=== PATIENT | female | born 1995 | race African-American/Black ===

== ENCOUNTER 2017-01-25 16:25 | Emergency (ER) | payer BC ==
[~2017-01-25] VITALS: Ht 160 cm; Wt 60.0 kg
[~2017-01-25 16:25] MED LIST: IBUP-232 PO
[2017-01-25 16:27] VITALS: BP 168/111; PULSE 119; RESP 17; TEMP 98.7; O2SAT 95
[2017-01-25 19:03] VITALS: BP 117/80; PULSE 104; RESP 16; TEMP 98.2; O2SAT 100
[2017-01-25 20:00] VITALS: BP 137/88; PULSE 104; RESP 20; O2SAT 100
[2017-01-25 20:41] LABS: BACTERIA, URINE MOD /hpf; BLOOD, URINE NEG (NEG); COMMENT (UR) CULTURE INDICATED; CULTURE IF INDICATED CULTURE INDICATED; GLUCOSE,URINE NEG (NEG); KETONE, URINE 40 mg/dL (NEG); MUCUS URINE FEW /lpf (OCC); NITRITE,URINE NEG (NEG); PH, URINE 6.5 (5.0-8.5); SQUAMOUS EPITHELIAL CELL URINE 2 /hpf (0-5); URINE COLOR YELLOW (YELLW/STRAW)
[2017-01-25] MEDS ORDERED: CEPH-460 PO (20:47)
--- NOTE | 2017-01-25 20:54 | PD ---
HPI Chief Complaint: Abdominal Pain Time Seen by Provider: 20:48 Travel History International Travel<30 days: No Contact w/Intl Traveler<30days: No Traveled to known affect area: No History of Present Illness HPI 21-year-old female that presents to the ED for evaluation of lower abdominal pain. Patient has had this for almost 2-3 days. Per patient she does have some foul-smelling discharge as well as urinary issues. Per patient she has had intercourse recently. She denies any possibility of . She denies any chest pain or shortness of breath. States that the pain is 3-4 out of 10. Gets worse with urinary symptoms. Denies any fevers chills or sweats. Condition she also reports she's been having some congestion for the past 2-3 days. She states that she has friends that are sick. Smile cough. No ear pain or sore throat. She's been taking OTC meds with minimal relief. PFSH Past Medical History Medical History: Denies Significant Hx ?: Not Social History Alcohol Use: No Tobacco Use: No Substance Use: No Allergies-Medications (Allergen,Severity, Reaction): Coded Allergies: No Known Allergies (Unverified , 12/01/15) Reported Meds & Prescriptions Reported Meds & Active Scripts Active Keflex (Cephalexin) 500 Mg Cap 500 Mg PO BID 10 Days Motrin (Ibuprofen) 600 Mg Tab 600 Mg PO Q8HR PRN Review of Systems Except as stated in HPI: all other systems reviewed are Neg Physical Exam Narrative GENERAL: Well-nourished, well-developed patient in no apparent distress. SKIN: Warm and dry. HEAD: Atraumatic. Normocephalic. EYES: Pupils equal and round reactive to light and accommodation. No scleral icterus. No injection or drainage. ENT: No nasal bleeding or discharge. Mucous membranes pink and moist. TMs are clear with no sign of infection or perforation. No mastoid tenderness. Ear canals are intact bilaterally. No lymphadenopathy. Nostril mucosa is red and moist with clear mucus noted. No sinus tenderness to palpation noted. Tonsils are not enlarged or swollen. No ulvua Deviation. Tongue is midline. NECK: Trachea midline. No JVD. No meningeal signs noted CARDIOVASCULAR: Regular rate and rhythm. RESPIRATORY: No accessory muscle use. Clear to auscultation. Breath sounds equal bilaterally. GASTROINTESTINAL: Abdomen soft, non-tender, nondistended. Hepatic and splenic margins not palpable. Genital exam: Done with female nurse present. Patient does have some foul-smelling other coming from the vagina. Discharge noted but minimal. No obvious mass or deformity noted in the vaginal wall. No lymphadenopathy noted. No adnexal tenderness. No cervical tenderness. MUSCULOSKELETAL: Extremities without clubbing, cyanosis, or edema. No obvious deformities. Full range of motion of the upper and lower extremities bilaterally. 2+ pulses bilaterally. NEUROLOGICAL: Awake and alert. No obvious cranial nerve deficits. Motor grossly within normal limits. Five out of 5 muscle strength in the arms and legs. Normal speech. PSYCHIATRIC: Appropriate mood and affect; insight and judgment normal. Data Data Last Documented VS Vital Signs Date Time Temp Pulse Resp B/P Pulse Ox O2 Delivery O2 Flow Rate FiO2 01/25/17 20:00 104 20 137/88 100 01/25/17 19:03 98.2 Orders Gc And Chlamydia Pcr (01/25/17 19:25) Wet Prep Profile (01/25/17 19:25) Urinalysis - C+S If Indicated (01/25/17 19:25) Ed Urine Pregnancytest Poc (01/25/17 19:25) Urine Culture (01/25/17 20:00) Labs Laboratory Tests Test 01/25/17 20:00 Urine Color YELLOW Urine Turbidity HAZY Urine pH 6.5 Urine Specific [place] 1.023 Urine Protein TRACE mg/dL Urine Glucose (UA) NEG mg/dL Urine Ketones 40 mg/dL Urine Occult Blood NEG Urine Nitrite NEG Urine Bilirubin NEG Urine Urobilinogen LESS THAN 2.0 MG/DL Urine Leukocyte Esterase NEG Urine RBC LESS THAN 1 /hpf Urine WBC 1 /hpf Urine Squamous Epithelial 2 /hpf Cells Urine Bacteria MOD /hpf Urine Mucus FEW /lpf Microscopic Urinalysis Comment CULTURE INDICATED Clue Cells (Wet Prep) NONE SEEN Vaginal Trichomonas (Wet Prep) NONE SEEN Vaginal Yeast (Wet Prep) NONE SEEN MDM Medical Decision Making Medical Screen Exam Complete: Yes Emergency Medical Condition: Yes Medical Record Reviewed: Yes Interpretation(s) wet prep negative UA shows UTI Differential Diagnosis Sinusitis versus cervicitis versus vaginal discharge versus pelvic pain versus versus STD Narrative Course 21-year-old female that presents to the ED for evaluation of possible sinus infection and vaginal discharge. Patient was properly examined and was found to have signs and symptoms consistent what appears to be sinusitis with possible UTI versus vaginitis. Labs show possible UTI and wet prep Was negative. At this time I recommend treatment for possible STD as described also be gonorrhea and chlamydia. Patient does have some bacteria in the urine and this could be contamination from the vagina but we'll treat this UTI for now. Patient was given dose of ceftriaxone and azithromycin here in the ED. Patient will be sent home with prescription for Keflex which should cover for both bacterial infection of the sinuses as well as for UTI. Patient agrees with plan. Motrin or Tylenol for pain. Follow with PCP. Patient was told that if her test were positive for gonorrhea and chlamydia she will be notified. See ED for worsening symptoms. Diagnosis Primary Impression: Vaginitis Qualified Code: N76.0 - Acute vaginitis Additional Impressions: UTI (urinary tract infection) Qualified Code: N30.00 - Acute cystitis without hematuria Sinusitis Qualified Code: J01.00 - Acute non-recurrent maxillary sinusitis Patient Instructions: General Instructions Additional Instructions: Motrin and Tylenol for pain and fever. You can use [id number] antihistamine as well as well as Mucinex as needed for runny nose and congestion. Cough drops for cough as needed. Drink plenty of fluids. Follow-up with PCP. See ED for worsening symptoms. No sex for least 2 weeks. Always use protection when having sex. Med/Other Pt SpecificInfo: Prescription(s) given Scripts Cephalexin (Keflex)500 Mg [id number] Mg PO BID 10 Days Prov:Barbara Pradhan MD 01/25/17 Disposition: 01 DISCHARGE HOME Condition: Stable Pepe Patel Jan 25, 2017 20:54
[2017-01-25] MEDS ORDERED: cefTRIAXone 250 MG VIAL IM ONE (21:00)
[2017-01-25] MEDS ORDERED: AZITHROMYCIN PWD FOR SUSP 1 GM PACKET PO ONE (21:00)
[2017-01-25] MEDS ORDERED: LIDOCAINE HCL 1% 50 ML VIAL IM ONE (21:00)
[2017-01-25 21:06] VITALS: BP 147/71; PULSE 101; RESP 16; O2SAT 100
[2017-01-25 22:59] LABS: CHLAMYDIA PCR NOT DETECTED (NOT DETECT); NEISSERIA PCR NOT DETECTED (NOT DETECT)
== END 2017-01-25 21:39 | disposition home or self-care (01) ==
LOC: NEPE 16:25
DX: N76.0 Acute vaginitis (principal); N39.0 Urinary tract infection, site not specified; J32.9 Chronic sinusitis, unspecified
CPT/HCPCS: 81001; 84703; 87086; 87210; 87491; 87591; 96372; 99283; J0696

== ENCOUNTER 2017-02-23 18:08 | Emergency (ER) | payer BC ==
[~2017-02-23] VITALS: Ht 160 cm; Wt 56.0 kg
[~2017-02-23 18:08] MED LIST changes: +CEPH-460 PO
[2017-02-23 18:10] VITALS: BP 145/89; PULSE 81; RESP 17; TEMP 97.9; O2SAT 99
[2017-02-23] MEDS ORDERED: SODIUM CHLOR 0.9% 1000 ML INJ 1,000 ML IV ONE ×2 (18:37→20:00)
[2017-02-23] MEDS ORDERED: SODIUM CHLORIDE 0.9% FLUSH 10 ML FLUSH IVF PRN (18:45)
--- NOTE | 2017-02-23 18:55 | PD ---
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 She states that she just started getting lightheaded and passed out. She denies any injuries. She states that she still feels a little lightheaded. She denies any vomiting, fevers, or any other symptoms. She states that she did eat a light breakfast this morning. She states she is in her menses but denies significant vaginal bleeding. Modifying Factors: None Associated Signs & Symptoms: Syncopal episode Risk Factors: None PFSH Past Medical History Medical History: Denies Significant Hx ?: Not LMP: [id number] : 0 Para: 0 Miscarriage: 0 : 0 Past Surgical History Surgical History: No Previous Surgery Social History Alcohol Use: No Tobacco Use: No Substance Use: No Allergies-Medications (Allergen,Severity, Reaction): Coded Allergies: No Known Allergies (Unverified , 12/01/15) Reported Meds & Prescriptions Reported Meds & Active Scripts Active Keflex (Cephalexin) 500 Mg Cap 500 Mg PO BID 10 Days Motrin (Ibuprofen) 600 Mg Tab 600 Mg PO Q8HR PRN Review of Systems Except as stated in HPI: all other systems reviewed are Neg Physical Exam Narrative GENERAL: Well-developed pleasant young after [place] female patient currently not in acute distress. Awake and oriented 3. SKIN: Focused skin assessment warm/dry. HEAD: Atraumatic. Normocephalic. EYES: Pupils equal and round. No scleral icterus. No injection or drainage. ENT: No nasal bleeding or discharge. Mucous membranes pink and moist. NECK: Trachea midline. No JVD. CARDIOVASCULAR: Regular rate and rhythm. No murmur appreciated. RESPIRATORY: No accessory muscle use. Clear to auscultation. Breath sounds equal bilaterally. GASTROINTESTINAL: Abdomen soft, non-tender, nondistended. Hepatic and splenic margins not palpable. MUSCULOSKELETAL: No obvious deformities. No clubbing. No cyanosis. No edema. NEUROLOGICAL: Awake and alert. No obvious cranial nerve deficits. Motor grossly within normal limits. Normal speech. PSYCHIATRIC: Appropriate mood and affect; insight and judgment normal. Data Data Last Documented VS Vital Signs Date Time Temp Pulse Resp B/P Pulse Ox O2 Delivery O2 Flow Rate FiO2 02/23/17 18:49 18 Room Air 02/23/17 18:10 97.9 81 145/89 99 Orders Electrocardiogram (02/23/17 18:37) Ed Urine Pregnancytest Poc (02/23/17 18:37) Complete Blood Count With Diff (02/23/17 18:37) Comprehensive Metabolic Panel (02/23/17 18:37) Magnesium (Mg) (02/23/17 18:37) Urinalysis - C+S If Indicated (02/23/17 18:37) Ecg Monitoring (02/23/17 18:37) Iv Access Insert/Monitor (02/23/17 18:37) Oximetry (02/23/17 18:37) Sodium Chloride 0.9% Flush (Ns Flush) (02/23/17 18:45) Sodium Chlor 0.9% 1000 Ml Inj (Ns 1000 M (02/23/17 18:37) MDM Medical Decision Making Medical Screen Exam Complete: Yes Emergency Medical Condition: Yes Medical Record Reviewed: Yes Differential Diagnosis Syncopedehydration versus hypoglycemia versus versus metabolic issues versus vasovagal versus dysrhythmias Narrative Course Patient has no focal neurological deficits. She is well-appearing in the ER. Vital signs are stable in the ER. Physician Communication Physician Communication Case is signed out to Dr. Deal and a 7 PM pending workup. Diagnosis Primary Impression: Syncope Condition: Stable Loren Mcclelland MD Feb 23, 2017 18:55
[2017-02-23 19:32] LABS: AUTOMATED NEUTROPHIL # 5.5 TH/MM3 (1.8-7.7); BASOPHIL % 0.3 % (0.0-2.0); EOSINOPHIL % 0.3 % (0.0-4.0); HEMATOCRIT 40.5 % (35.0-46.0); LYMPH % 23.9 % (9.0-44.0); MEAN CELL VOLUME 75.2 FL (80.0-100.0); MEAN CORPUSCULAR HEMOGLOBIN 24.9 PG (27.0-34.0); MEAN CORPUSCULAR HGB CONC 33.2 % (32.0-36.0); MONO % 8.9 % (0.0-8.0); NEUT % 66.6 % (16.0-70.0); PLATELET COUNT 209 TH/MM3 (150-450); RED BLOOD COUNT 5.39 MIL/MM3 (4.00-5.30); RED CELL DISTRIBUTION WIDTH 15.4 % (11.6-17.2); WHITE BLOOD COUNT 8.2 TH/MM3 (4.0-11.0)
[2017-02-23 19:34] LABS: BLOOD, URINE NEG (NEG); COMMENT (UR) CULT NOT INDICATED; CULTURE IF INDICATED CULT NOT INDICATED; GLUCOSE,URINE NEG (NEG); KETONE, URINE 40 mg/dL (NEG); MUCUS URINE MANY /lpf (OCC); NITRITE,URINE NEG (NEG); SQUAMOUS EPITHELIAL CELL URINE 2 /hpf (0-5); URINE COLOR YELLOW (YELLW/STRAW)
[2017-02-23 19:35] VITALS: BP 125/81; PULSE 88; RESP 16; O2SAT 99
[2017-02-23 19:35] LABS: HEMO FLAGS AUTO DIFF
[2017-02-23 19:56] LABS: ANION GAP 7 MEQ/L (5-15); AST (GOT) 24 U/L (16-38); BICARBONATE 27.9 MEQ/L (21.0-32.0); BLOOD UREA NITROGEN 8 MG/DL (7-18); CHLORIDE 105 MEQ/L (98-107); GLOMERULAR FILTRATION RATE 109 ML/MIN (>89); MAGNESIUM 2.3 MG/DL (1.5-2.5); POTASSIUM 3.5 MEQ/L (3.5-5.1); SODIUM (NA) 140 MEQ/L (136-145)
[2017-02-23 19:59] LABS: ALKALINE PHOSPHATASE 72 U/L (45-117); ALT (GPT) 29 U/L (9-42); TOTAL BILIRUBIN ADULT 0.4 MG/DL (0.2-1.0)
--- NOTE | 2017-02-23 20:18 | PD ---
Physical Exam Date Seen by Provider: Feb 23, 2017 Time Seen by Provider: 20:23 Narrative 21-year-old female came to the emergency room with history of syncopal episode at work earlier today. She was seen by the previous ER physician. Please refer to her history and physical for additional details. My sign out was to follow-up on the blood test results. Patient had received 1 L of IV fluid bolus. UA was suggestive of ketones and I have ordered a second liter of IV fluid bolus. Rest of the blood test results are within normal limit. I have not seen an EKG at an of asked the nurse to do a 12-lead EKG on her. I went and reassessed her. She says she is still feeling little lightheaded. Vital signs otherwise stable. I'll give her some Gatorade and patricia crackers and she will be discharged home after that. Patient told me that she did not eat anything besides breakfast this morning. We are giving her a dinner tray. Data Data Last Documented VS Vital Signs Date Time Temp Pulse Resp B/P Pulse Ox O2 Delivery O2 Flow Rate FiO2 02/23/17 19:35 88 16 125/81 99 Room Air 02/23/17 18:10 97.9 Orders Electrocardiogram (02/23/17 18:37) Ed Urine Pregnancytest Poc (02/23/17 18:37) Complete Blood Count With Diff (02/23/17 18:37) Comprehensive Metabolic Panel (02/23/17 18:37) Magnesium (Mg) (02/23/17 18:37) Urinalysis - C+S If Indicated (02/23/17 18:37) Ecg Monitoring (02/23/17 18:37) Iv Access Insert/Monitor (02/23/17 18:37) Oximetry (02/23/17 18:37) Sodium Chloride 0.9% Flush (Ns Flush) (02/23/17 18:45) Sodium Chlor 0.9% 1000 Ml Inj (Ns 1000 M (02/23/17 18:37) Sodium Chlor 0.9% 1000 Ml Inj (Ns 1000 M (02/23/17 20:00) Labs Laboratory Tests Test 02/23/17 02/23/17 14:00 19:00 White Blood Count 8.2 TH/MM3 Red Blood Count 5.39 MIL/MM3 Hemoglobin 13.4 GM/DL Hematocrit 40.5 % Mean Corpuscular Volume 75.2 FL Mean Corpuscular Hemoglobin 24.9 PG Mean Corpuscular Hemoglobin 33.2 % Concent Red Cell Distribution Width 15.4 % Platelet Count 209 TH/MM3 Mean Platelet Volume 9.3 FL Neutrophils (%) (Auto) 66.6 % Lymphocytes (%) (Auto) 23.9 % Monocytes (%) (Auto) 8.9 % Eosinophils (%) (Auto) 0.3 % Basophils (%) (Auto) 0.3 % Neutrophils # (Auto) 5.5 TH/MM3 Lymphocytes # (Auto) 2.0 TH/MM3 Monocytes # (Auto) 0.7 TH/MM3 Eosinophils # (Auto) 0.0 TH/MM3 Basophils # (Auto) 0.0 TH/MM3 CBC Comment AUTO DIFF Differential Comment AUTO DIFF CONFIRMED Platelet Estimate NORMAL Platelet Morphology Comment ENLARGED Sodium Level 140 MEQ/L Potassium Level 3.5 MEQ/L Chloride Level 105 MEQ/L Carbon Dioxide Level 27.9 MEQ/L Anion Gap 7 MEQ/L Blood Urea Nitrogen 8 MG/DL Creatinine 0.82 MG/DL Estimat Glomerular Filtration 109 ML/MIN Rate Random Glucose 105 MG/DL Calcium Level 9.6 MG/DL Magnesium Level 2.3 MG/DL Total Bilirubin 0.4 MG/DL Aspartate Amino Transf 24 U/L (AST/SGOT) Alanine Aminotransferase 29 U/L (ALT/SGPT) Alkaline Phosphatase 72 U/L Total Protein 8.3 GM/DL Albumin 4.4 GM/DL Urine Color YELLOW Urine Turbidity CLEAR Urine pH 6.0 Urine Specific [place] 1.027 Urine Protein 30 mg/dL Urine Glucose (UA) NEG mg/dL Urine Ketones 40 mg/dL Urine Occult Blood NEG Urine Nitrite NEG Urine Bilirubin NEG Urine Urobilinogen 2.0 MG/DL Urine Leukocyte Esterase NEG Urine RBC 1 /hpf Urine WBC 2 /hpf Urine Squamous Epithelial 2 /hpf Cells Urine Mucus MANY /lpf Microscopic Urinalysis Comment CULT NOT INDICATED MDM Supervised Visit with KATHRYN: No Interpretation(s) Twelve-lead EKG was reviewed by me. Normal sinus rhythm, normal axis, nonspecific ST-T wave changes. Heart rate of 83 bpm. Diagnosis Primary Impression: Syncope Qualified Code: R55 - Syncope, unspecified syncope type Referrals: Primary Care Physician 3 days Additional Instruction: Please return to the ER if the condition worsens or any other new concerns. Make sure you eat 3 proper meals a day. Follow-up with your primary care in couple days. Drink fluids and keep herself hydrated. Med/Other Pt SpecificInfo: No Change to Meds Scripts No Active Prescriptions or Reported Meds Disposition: 01 DISCHARGE HOME Condition: Stable Marie Hillman MD Feb 23, 2017 20:18
[2017-02-23 20:24] LABS: PLATELET ESTIMATE SMEAR NORMAL (NORMAL); PLATELET MORPHOLOGY ENLARGED (NORMAL); SCAN/DIFF AUTO DIFF CONFIRMED
--- NOTE | 2017-02-28 08:18 | EKG ---
Date Performed: 02/23/2017 Time Performed: 20:32:40 PTAGE: 21 years EKG: Sinus rhythm POSSIBLE LEFT ATRIAL ENLARGEMENT BORDERLINE ECG NO PREVIOUS TRACING DOCTOR: Asher Yap Interpretating Date/Time 02/28/2017 08:16:12
== END 2017-02-23 21:02 | disposition home or self-care (01) ==
LOC: NEPE 18:08
DX: R55 Syncope and collapse (principal); R42 Dizziness and giddiness
CPT/HCPCS: 80053; 81001; 83735; 84703; 85025; 93005; 96360; 99284; J7030

== ENCOUNTER 2017-03-27 04:44 | Emergency (ER) | payer BC ==
[~2017-03-27] VITALS: Ht 165.1 cm; Wt 65.0 kg
[2017-03-27 04:47] VITALS: BP 168/114; PULSE 75; RESP 16; TEMP 97.6; O2SAT 100
[2017-03-27] MEDS ORDERED: cefTRIAXone 250 MG VIAL IM ONE (07:45)
[2017-03-27] MEDS ORDERED: LIDOCAINE HCL 1% 50 ML VIAL XX ONE (07:45)
[2017-03-27 07:48] LABS: BLOOD, URINE NEG (NEG); CALCIUM OXALATE CRYSTALS,URINE FEW /hpf; COMMENT (UR) CULT NOT INDICATED; CULTURE IF INDICATED CULT NOT INDICATED; GLUCOSE,URINE NEG (NEG); KETONE, URINE TRACE mg/dL (NEG); MUCUS URINE FEW /lpf (OCC); NITRITE,URINE NEG (NEG); PH, URINE 5.5 (5.0-8.5); SQUAMOUS EPITHELIAL CELL URINE 1 /hpf (0-5); URINE COLOR YELLOW (YELLW/STRAW)
[2017-03-27] MEDS ORDERED: IBUP800T23 PO (07:54)
[2017-03-27] MEDS ORDERED: METR-1 PO (07:54)
[2017-03-27] MEDS ORDERED: DOXY100C PO (07:54)
[2017-03-27] MEDS ORDERED: TRAM50TA PO (07:54)
--- NOTE | 2017-03-27 07:56 | PD ---
HPI . Pelvic pain Chief Complaint: Cook Night Problem/Complaint Time Seen by Provider: 07:32 Travel History International Travel<30 days: No Contact w/Intl Traveler<30days: No Traveled to known affect area: No History of Present Illness HPI Patient presents with a 3 week history of pelvic pain associated with vaginal discharge and dyspareunia. Pain is crampy and constant and is rated as 5/10. PFSH Past Medical History ?: Not LMP: 02/28/2017 : 0 Para: 0 Miscarriage: 0 : 0 Social History Alcohol Use: No Tobacco Use: No Substance Use: No Allergies-Medications (Allergen,Severity, Reaction): Coded Allergies: No Known Allergies (Unverified , 03/27/17) Reported Meds & Prescriptions Reported Meds & Active Scripts Active No Active Prescriptions or Reported Medications Review of Systems Except as stated in HPI: all other systems reviewed are Neg General / Constitutional: No: Fever, Chills Gastrointestinal: No: Nausea, Vomiting Genitourinary: Positive: Pelvic Pain, Dyspareunia, Discharge, Vaginal Bleeding , No: Urgency, Dysuria Physical Exam Narrative GENERAL: Awake and alert and in no acute distress. SKIN: Warm and dry. HEAD: Atraumatic. Normocephalic. EYES: Pupils equal and round. NECK: Trachea midline. CARDIOVASCULAR: Regular rate and rhythm. RESPIRATORY: No accessory muscle use. ABDOMEN: Soft with suprapubic tenderness. : Normal female external genitalia. Purulent discharge coming from the cervical os. Cervix is inflamed appearing. She has positive cervical motion tenderness. No adnexal masses. MUSCULOSKELETAL: No obvious deformities. No edema. NEUROLOGICAL: Awake and alert. No obvious cranial nerve deficits. Motor grossly within normal limits. Normal speech. PSYCHIATRIC: Appropriate mood and affect; insight and judgment normal. Data Data Last Documented VS Vital Signs Date Time Temp Pulse Resp B/P Pulse Ox O2 Delivery O2 Flow Rate FiO2 03/27/17 06:19 78 18 03/27/17 04:47 97.6 168/114 100 Orders Gc And Chlamydia Pcr (03/27/17 07:04) Wet Prep Profile (03/27/17 07:04) Urinalysis - C+S If Indicated (03/27/17 07:04) Ed Urine Pregnancytest Poc (03/27/17 07:04) Ceftriaxone Inj (Rocephin Inj) (03/27/17 07:45) Lidocaine 1% Inj (50 Ml) (Xylocaine 1% I (03/27/17 07:45) Labs Laboratory Tests Test 03/27/17 07:00 Urine Color YELLOW Urine Turbidity HAZY Urine pH 5.5 Urine Specific [place] 1.030 Urine Protein TRACE mg/dL Urine Glucose (UA) NEG mg/dL Urine Ketones TRACE mg/dL Urine Occult Blood NEG Urine Nitrite NEG Urine Bilirubin NEG Urine Urobilinogen 2.0 MG/DL Urine Leukocyte Esterase NEG Urine RBC LESS THAN 1 /hpf Urine WBC 2 /hpf Urine Squamous Epithelial 1 /hpf Cells Urine Calcium Oxalate Crystals FEW /hpf Urine Mucus FEW /lpf Microscopic Urinalysis Comment CULT NOT INDICATED MDM Medical Decision Making Medical Screen Exam Complete: Yes Emergency Medical Condition: Yes Differential Diagnosis Differential diagnosis of pelvic pain includes but is not limited to UTI, PID, ectopic , spontaneous AB, constipation, viral illness Narrative Course Patient presents with a 3 week history of pelvic pain associated with discharge and dyspareunia. She has PID on exam. She has been treated with Rocephin, 250 mg IM here. She will be discharged on doxycycline and Flagyl. HCG negative. Laboratory Tests Test 03/27/17 07:00 Urine Color YELLOW Urine Turbidity HAZY Urine pH 5.5 Urine Specific [place] 1.030 Urine Protein TRACE mg/dL Urine Glucose (UA) NEG mg/dL Urine Ketones TRACE mg/dL Urine Occult Blood NEG Urine Nitrite NEG Urine Bilirubin NEG Urine Urobilinogen 2.0 MG/DL Urine Leukocyte Esterase NEG Urine RBC LESS THAN 1 /hpf Urine WBC 2 /hpf Urine Squamous Epithelial 1 /hpf Cells Urine Calcium Oxalate Crystals FEW /hpf Urine Mucus FEW /lpf Microscopic Urinalysis Comment CULT NOT INDICATED Diagnosis Primary Impression: PID (acute pelvic inflammatory disease) Patient Instructions: General Instructions, Pelvic Inflammatory Disease (DC) Med/Other Pt SpecificInfo: Prescription(s) given Scripts Tramadol 50 Mg Tab50 Mg PO Q4H PRN (PAIN) #12 TAB Ref 0 Prov:Kyleigh Davis MD 03/27/17 Ibuprofen 800 Mg [id number] Mg PO Q8H PRN (Pain/Inflammation) #60 TAB Ref 0 Prov:Kyleigh Davis MD 03/27/17 Metronidazole (Flagyl)500 Mg [id number] Mg PO BID 7 Days Ref 0 Prov:Kyleigh Davis MD 03/27/17 Doxycycline Hyclate 100 Mg [id number] Mg PO BID #20 CAP Ref 0 Prov:Kyleigh Davis MD 03/27/17 Disposition: 01 DISCHARGE HOME Condition: Stable Kyleigh Davis MD March 27, 2017 07:56
[2017-03-27 13:14] LABS: CHLAMYDIA PCR DETECTED (NOT DETECT); NEISSERIA PCR NOT DETECTED (NOT DETECT)
== END 2017-03-27 08:05 | disposition home or self-care (01) ==
LOC: NEPE 04:44
DX: N73.0 Acute parametritis and pelvic cellulitis (principal)
CPT/HCPCS: 81001; 84703; 87210; 87491; 87591; 96372; 99284; J0696